=== PATIENT | female | born 1950 | race Caucasian/White ===

== ENCOUNTER → 2017-01-23 | Outpatient (CLI) | payer BC ==
[2017-01-23 12:55] LABS: BLOOD GAS BASE EXCESS 0.9 mmol/L (-2-2); BLOOD GAS CARBOXYHEMOGLOBIN 1.3 % (0-4); BLOOD GAS HCO3 25 mmol/L (22-26); BLOOD GAS METHEMOGLOBIN 1.2 % (0-2); BLOOD GAS O2 HGB SATURATION 92 % (90-100); BLOOD GAS OXYGEN CONTENT 17.2 Vol % (12.0-20.0); BLOOD GAS PCO2 39 mmHg (38-42); BLOOD GAS PO2 69 mmHg (61-120); BLOOD GAS TOTAL HGB 13.3 G/DL (12.0-16.0); CRITICAL VALUE NO; TEMP CORR TO 98.6
[2017-01-23 12:56] LABS: DRAW SITE RT BRACHIAL; FIO2 21 %; NUMBER OF ARTERIAL PUNCTURES 4; STAT NO; ULNAR PULSE PRESENT
--- NOTE | 2017-01-23 15:01 | RADRPT ---
EXAM DATE/TIME: 01/23/2017 14:18 [place] COMPARISON: No previous studies available for comparison. INDICATIONS : Cough. RADIATION DOSE: 9.89 CTDIvol (mGy) MEDICAL HISTORY : None SURGICAL HISTORY : None. ENCOUNTER: Initial ACUITY: >1 yr PAIN SCALE: 0/10 LOCATION: chest TECHNIQUE: Volumetric scanning of the chest was performed. Using automated exposure control and adjustment of t he mA and/or kV according to patient size, radiation dose was kept as low as reasonably achievable to obtain optimal diagnostic quality images. DICOM format image data is available electronically for r eview and comparison. FINDINGS: LUNGS: Very subtle groundglass opacities at the lung bases consistent with minimal volume loss. Small cyst i n the right lower lobe. No significant focal airspace disease. PLEURAE: There is no pleural thickening or pleural effusion. MEDIASTINUM: The heart and great vessels demonstrate no acute abnormality. There is no mediastinal or hilar lymph adenopathy. AXILLAE: Within normal limits. No lymphadenopathy. MUSCULOSKELETAL: Mild scoliosis of the upper thoracic spine with convex to the left. 3.2 x 1.8 x 6.3 cm lipoma in the left subscapularis region. MISCELLANEOUS: The visualized upper abdominal organs demonstrate no acute abnormality. CONCLUSION: 1. No significant focal airspace disease or pleural abnormality. 2. 3.2 x 1.8 x 6.3 cm lipoma in the left subscapularis region. Dontae Bennett MD on January 23, 2017 at 14:55 Board Certified Radiologist. This report was verified electronically.
[2017-01-23 15:26] LABS: HEMATOCRIT 39.4 % (35.0-46.0); MEAN CELL VOLUME 82.1 FL (80.0-100.0); MEAN CORPUSCULAR HEMOGLOBIN 27.2 PG (27.0-34.0); MEAN CORPUSCULAR HGB CONC 33.1 % (32.0-36.0); PLATELET COUNT 284 TH/MM3 (150-450); RED CELL DISTRIBUTION WIDTH 13.1 % (11.6-17.2); REVIEW FLAG FINAL; WHITE BLOOD COUNT 11.7 TH/MM3 (4.0-11.0)
[2017-01-23 15:56] LABS: WESTERGREN SEDIMENTATION RATE 20 mm/hr (0-30)
--- NOTE | 2017-01-28 09:44 | RSPPFT ---
DATE OF PROCEDURE: 01/23/17 COMMENTS: Spirometry demonstrates an FEV1 of 1.7 at 66% of predicted, FVC of 2.1 at 64%, FEF 25-75 at 64%. Post-bronchodilator study demonstrated no significant change. Lung volumes demonstrated a raised RV/TLC ratio indicating hyperinflation and air trapping. Diffusion capacity is not completed. Flow volume loops suggest a restrictive pattern. IMPRESSION: 1. Mild restrictive disease. 2. Additional mild obstructive disease with small airways obstruction. 3. No significant change following use of bronchodilator.
== END ==
LOC: HRSP 12:07
DX: J45.909 Unspecified asthma, uncomplicated (principal); I10 Essential (primary) hypertension
CPT/HCPCS: 36415; 36600; 71250; 82785; 82805; 85027; 85652; 94060; 94726